=== PATIENT | female | born 1945 | race American Indian/Alaskan Native ===

== ENCOUNTER 2019-03-19 10:42 | Emergency (ER) | payer OTHER, MEDICARE ==
[2019-03-19] MEDS ORDERED: D50W (25GM) Syringe IV ONE ×2 (11:42→13:59)
--- NOTE | 2019-03-19 11:48 | Emergency Department Report ---
ED General Adult HPI - General Chief complaint: Hypoglycemia Stated complaint: HYPERGLYCEMIA Time Seen by Provider: 03/19/19 11:11 Source: patient, EMS Mode of arrival: Stretcher Limitations: No Limitations - History of Present Illness Initial comments: The patient presents to the emergency department with a chief complaint of hypoglycemia. The patient had a glucose level of 18 upon arrival is EMS. The patient has type 2 diabetes but does not take medications for it. Patient states she has not felt like eating for 2 days and her last meal was yesterday morning. Patient also is on dialysis recipient and goes on Tuesdays, , Sunday and missed dialysis yesterday due to the way she was feeling -: Sudden Radiation: non-radiation Severity scale (0 -10): 0 Improves with: none Worsens with: none Associated Symptoms: denies other symptoms Treatments Prior to Arrival: none - Related Data Home Medications Medication Instructions Recorded Confirmed Last Taken Aspirin EC 81 mg PO DAILY 03/19/19 03/19/19 Unknown Folic Acid 400 mcg PO QDAY 03/19/19 03/19/19 Unknown Gabapentin [Neurontin] 300 mg PO QDAY 03/19/19 03/19/19 Unknown Levothyroxine [Synthroid] 125 mcg PO DAILY 03/19/19 03/19/19 Unknown Pravastatin [Pravachol] 1 tab PO DAILY 03/19/19 03/19/19 Unknown Allergies Allergy/AdvReac Type Severity Reaction Status Date / Time No Known Allergies Allergy Verified 03/19/19 11:46 ED Review of Systems ROS: Stated complaint: HYPERGLYCEMIA Other details as noted in HPI Comment: All other systems reviewed and negative Constitutional: denies: chills, fever Eyes: denies: eye pain, eye discharge, vision change ENT: denies: ear pain, throat pain Respiratory: denies: cough, shortness of breath, wheezing Cardiovascular: denies: chest pain, palpitations Endocrine: no symptoms reported Gastrointestinal: denies: abdominal pain, nausea, diarrhea Genitourinary: denies: urgency, dysuria, discharge Musculoskeletal: denies: back pain, joint swelling, arthralgia Skin: denies: rash, lesions Neurological: denies: headache, weakness, paresthesias Psychiatric: denies: anxiety, depression Hematological/Lymphatic: denies: easy bleeding, easy bruising ED Past Medical Hx - Past Medical History Previous Medical History?: Yes Hx Diabetes: Yes (Does not take medications) Additional medical history: ESRD-T,Th,S, Hyperlipidemia, Hypothyroidism - Surgical History Past Surgical History?: Yes Additional Surgical History: Right BKA - Social History Smoking Status: Former Smoker Substance Use Type: None - Medications Home Medications: Home Medications Medication Instructions Recorded Confirmed Last Taken Type Aspirin EC 81 mg PO DAILY 03/19/19 03/19/19 Unknown History Folic Acid 400 mcg PO QDAY 03/19/19 03/19/19 Unknown History Gabapentin [Neurontin] 300 mg PO QDAY 03/19/19 03/19/19 Unknown History Levothyroxine [Synthroid] 125 mcg PO DAILY 03/19/19 03/19/19 Unknown History Pravastatin [Pravachol] 1 tab PO DAILY 03/19/19 03/19/19 Unknown History ED Physical Exam - General Limitations: No Limitations General appearance: alert, in no apparent distress - Head Head exam: Present: atraumatic, normocephalic - Eye Eye exam: Present: normal appearance, PERRL, EOMI - ENT ENT exam: Present: mucous membranes moist - Neck Neck exam: Present: normal inspection - Respiratory Respiratory exam: Present: normal lung sounds bilaterally. Absent: respiratory distress - Cardiovascular Cardiovascular Exam: Present: regular rate, normal rhythm. Absent: systolic murmur, diastolic murmur, rubs, gallop - GI/Abdominal GI/Abdominal exam: Present: soft, normal bowel sounds. 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 Absent: rash ED Course Vital Signs 03/19/19 03/19/19 03/19/19 11:04 12:01 13:01 Temperature 97.6 F Pulse Rate 90 94 H 86 Respiratory 16 16 16 Rate Blood Pressure 141/114 Blood Pressure 114/75 114/45 [Left] O2 Sat by Pulse 96 95 95 Oximetry 03/19/19 14:30 Temperature Pulse Rate 80 Respiratory 16 Rate Blood Pressure Blood Pressure 130/55 [Left] O2 Sat by Pulse 98 Oximetry ED Medical Decision Making - Lab Data Result diagrams: 03/19/19 13:00 03/19/19 13:00 Lab Results 03/19/19 03/19/19 03/19/19 Range/Units 11:05 13:00 13:00 WBC 9.9 (4.5-11.0) K/mm3 RBC 3.85 (3.65-5.03) M/mm3 Hgb 12.4 (10.1-14.3) gm/dl Hct 38.3 (30.3-42.9) % MCV 100 H (79-97) fl MCH 32 (28-32) pg MCHC 33 (30-34) % RDW 16.7 H (13.2-15.2) % Plt Count 287 (140-440) K/mm3 Lymph % (Auto) 7.2 L (13.4-35.0) % [place] % (Auto) 8.3 H (0.0-7.3) % Eos % (Auto) 0.1 (0.0-4.3) % Baso % (Auto) 0.5 (0.0-1.8) % Lymph # 0.7 L (1.2-5.4) K/mm3 [place] # 0.8 (0.0-0.8) K/mm3 Eos # 0.0 (0.0-0.4) K/mm3 Baso # 0.0 (0.0-0.1) K/mm3 Seg Neutrophils % 83.9 H (40.0-70.0) % Seg Neutrophils # 8.3 H (1.8-7.7) K/mm3 Sodium 135 L (137-145) mmol/L Potassium 5.5 H (3.6-5.0) mmol/L Chloride 92.2 L (98-107) mmol/L Carbon Dioxide 21 L (22-30) mmol/L Anion Gap 27 mmol/L BUN 49 H (7-17) mg/dL Creatinine 10.5 H (0.7-1.2) mg/dL Estimated GFR 4 ml/min BUN/Creatinine Ratio 5 % Glucose 197 H (65-100) mg/dL POC Glucose 122 H (70-105) Lactic Acid (0.7-2.0) mmol/L Calcium 9.7 (8.4-10.2) mg/dL Total Bilirubin 0.20 (0.1-1.2) mg/dL AST 12 (5-40) units/L ALT 8 (7-56) units/L Alkaline Phosphatase 91 (35-129) units/L Total Protein 7.7 (6.3-8.2) g/dL Albumin 3.5 L (3.9-5) g/dL Albumin/Globulin Ratio 0.8 % 03/19/19 Range/Units 13:00 WBC (4.5-11.0) K/mm3 RBC (3.65-5.03) M/mm3 Hgb (10.1-14.3) gm/dl Hct (30.3-42.9) % MCV (79-97) fl MCH (28-32) pg MCHC (30-34) % RDW (13.2-15.2) % Plt Count (140-440) K/mm3 Lymph % (Auto) (13.4-35.0) % [place] % (Auto) (0.0-7.3) % Eos % (Auto) (0.0-4.3) % Baso % (Auto) (0.0-1.8) % Lymph # (1.2-5.4) K/mm3 [place] # (0.0-0.8) K/mm3 Eos # (0.0-0.4) K/mm3 Baso # (0.0-0.1) K/mm3 Seg Neutrophils % (40.0-70.0) % Seg Neutrophils # (1.8-7.7) K/mm3 Sodium (137-145) mmol/L Potassium (3.6-5.0) mmol/L Chloride (98-107) mmol/L Carbon Dioxide (22-30) mmol/L Anion Gap mmol/L BUN (7-17) mg/dL Creatinine (0.7-1.2) mg/dL Estimated GFR ml/min BUN/Creatinine Ratio % Glucose (65-100) mg/dL POC Glucose (70-105) Lactic Acid 2.90 H* (0.7-2.0) mmol/L Calcium (8.4-10.2) mg/dL Total Bilirubin (0.1-1.2) mg/dL AST (5-40) units/L ALT (7-56) units/L Alkaline Phosphatase (35-129) units/L Total Protein (6.3-8.2) g/dL Albumin (3.9-5) g/dL Albumin/Globulin Ratio % - EKG Data -: EKG Interpreted by Me EKG shows normal: sinus rhythm Rate: normal - Radiology Data Radiology results: report reviewed - Medical Decision Making Sepsis protocol ordered IV hyperkalemia medications given Patient will be transferred to [facility] with Dr. Sanches for the transfer and the admitting physician will be Dr. Vanessa Critical Care Time: Yes Critical care time in (mins) excluding proc time.: 35 Critical care attestation.: If time is entered above; I have spent that time in minutes in the direct care of this critically ill patient, excluding procedure time. ED Disposition Clinical Impression: Hyperkalemia, ESRD (end stage renal disease) on dialysis, Dry gangrene Disposition: TO HOME OR SELFCARE Is pt being admited?: No Does the pt Need Aspirin: No Condition: Stable Referrals: PRIMARY CARE, [Primary Care Provider] - 3-5 Days Forms: Accompanied Note
[2019-03-19 13:12] LABS: Basophils % (Auto) 0.5 % (0.0-1.8); Eosinophils % (Auto) 0.1 % (0.0-4.3); Hematocrit 38.3 % (30.3-42.9); Hemoglobin 12.4 gm/dl (10.1-14.3); Lymphocytes # (Auto) 0.7 K/mm3 (1.2-5.4); Lymphocytes % (Auto) 7.2 % (13.4-35.0); Mean Corpuscular HGB Conc 33 % (30-34); Mean Corpuscular Volume 100 fl (79-97); Monocytes # (Auto) 0.8 K/mm3 (0.0-0.8); Monocytes % (Auto) 8.3 % (0.0-7.3); Platelet Count 287 K/mm3 (140-440); Red Blood Count 3.85 M/mm3 (3.65-5.03); Red Cell Distribution Width 16.7 % (13.2-15.2)
[2019-03-19 13:37] LABS: Albumin 3.5 g/dL (3.9-5); Calcium 9.7 mg/dL (8.4-10.2)
[2019-03-19] MEDS ORDERED: CALCIUM GLUCONATE 1,000 MG in NACL 0.9% 100 ML IV ONE (13:59)
[2019-03-19] MEDS ORDERED: KIONEX PO ONE (13:59)
[2019-03-19] MEDS ORDERED: HumuLIN R IV ONE (14:00)
[2019-03-19 14:48] VITALS: BP 130/55
[2019-03-19] MEDS ORDERED: CLEOCIN 600 MG/50 mL 600 MG/50 ML BAG IV SCH (15:20)
== END 2019-03-19 16:47 | disposition home or self-care (01) ==
LOC: ED 10:42
DX: E87.5 Hyperkalemia (principal); E11.22 Type 2 diabetes mellitus with diabetic chronic kidney disease; I96 Gangrene, not elsewhere classified; N18.6 End stage renal disease; E03.9 Hypothyroidism, unspecified; Z99.2 Dependence on renal dialysis; Z87.891 Personal history of nicotine dependence
CPT/HCPCS: 36415; 80053; 82140; 82962; 85025; 87040; 93005; 93010; 96365; 96367; 96375; 96376; 99291; J0610; J1815